=== PATIENT | female | born 1985 | race Caucasian/White ===

== ENCOUNTER 2020-03-16 14:44 | Emergency (ER) | payer BC, SELFPAY ==
[2020-03-16 15:50] VITALS: BP 126/93; PULSE 66; RESP 20; TEMP 36.8; O2SAT 100; BMI 26.7
[2020-03-16 16:20] VITALS: BP 126/93; PULSE 66; RESP 20; TEMP 36.8; O2SAT 100
--- NOTE | 2020-03-16 16:21 | HMH.EDUTC ---
[facility] [place] Impression: Exposure to COVID-19 virus Disposition: Home, Self-Care Condition on Discharge: Good Instructions: DI for COVID-19 (Suspected or Confirmed ), Preventing the Spread of Coronavirus Discharge Instructions Additional Instructions: self isolate until test results are known to be neg Referrals: Vega Dia [Primary Care Provider] - Time of Disposition: 16:26 Medical Decision Making - Travis Inquiry Pt receiving controlled substance: No Vital Signs: 03/16/20 15:50 03/16/20 16:20 Temperature 98.2 F 98.2 F Temperature Source Oral Pulse Rate 66 Pulse Rate [Left Brachial] 66 Respiratory Rate 20 20 Blood Pressure 126/93 H Blood Pressure [Left Arm] 126/93 H Blood Pressure Mean [Left Arm] 104 Blood Pressure Source [Left Arm] Automatic Cuff Blood Pressure Position [Left Arm] Sitting 02 Sat by Pulse Oximetry 100 Oxygen Delivery Method Room Air [facility] [place] - General Chief complaint: Urgent Treatment Center Stated complaint: covid exposure Time Seen by Provider: 03/16/20 16:21 Mode of Arrival: Ambulatory Source of Information: Patient Limitations: No Limitations Description of Symptoms (Recalled from Triage Doc. by RN): COVID TEST D/T EXPOSURE HEENT Symptoms (Recalled from RN notes): No Resp Symptoms (Recalled from RN notes): No Skin Symptoms (Recalled from RN notes): No MS Symptoms (Recalled from RN notes): No Functional Status (Recalled from RN notes): WNL - History of Present Illness Provider Complaint: 34 yr old female presents for covid test. pt states she was exposed but no symptoms. - Worker's Comp Is this a Worker's Comp case?: No [facility] History - Hepatitis A Screen Drug use history?: No High risk sexual behaviors?: No History of sexually transmitted infection?: No Currently employed?: No Childcare worker?: No Do you have indoor plumbing?: Yes Do you have electricity?: Yes Attestation statement:: This patient has been screened for Hepatitis A risk factors. I have reviewed the patient's past medical history: Yes - Social History Alcohol Intake: never Occupational Status: other ROS Obtained: Yes All systems reviewed & no additional complaints, Yes Systems reviewed as appropriate & no additional complaints - Constitutional Constitutional: Reports system reviewed and no additional complaints, except as docu, Denies chills - Eyes Eyes: Reports system reviewed and no additional complaints, except as docu, Denies change in vision - ENT Ears, Nose, Mouth, and Throat: Reports system reviewed and no additional complaints, except as docu, Denies sore throat - Cardiovascular Cardiovascular: Reports system reviewed and no additional complaints, except as docu, Denies chest pain at rest - Respiratory Respiratory: Yes system reviewed and no additional complaints, except as docu, No change in phlegm color - Gastrointestinal Gastrointestingal: Reports: system reviewed and no additional complaints, except as docu. Denies: bloating - Genitourinary Female Genitourinary: Reports system reviewed and no additional complaints, except as docu - Musculoskeletal Musculoskeletal: Reports system reviewed and no additional complaints, except as docu, Denies joint swelling - Integumentary/Breasts Skin/Breast: Reports system reviewed and no additional complaints, except as docu, Denies rash - Neurologic Neurologic: Reports system reviewed and no additional complaints, except as docu, Denies loss of vision - Endocrine Endocrine: Reports system reviewed and no additional complaints, except as docu, Denies fatigue - Hematologic/Lymphatic Henatologic/Lymphatic: Reports system reviewed and no additional complaints, except as docu, Denies lymphadenopathy - Allergic/Immunologic Allergic/Immunologic: Reports system reviewed and no additional complaints, except as docu, Denies itchy eyes Physical Exam - General General appearance: alert, in no apparent distress
--- NOTE | 2020-03-16 20:53 | PC.NURSE ---
PATIENT NOTIFIED OF POSITIVE COVID RESULTS
== END 2020-03-16 16:30 | disposition home or self-care (01) ==
PROVIDERS: Emergency Provider Nurse Practitioner Family; PCP Family Medicine
DX: U07.1 COVID-19 (principal)
CPT/HCPCS: 99202; G0463; U0003

== ENCOUNTER 2024-12-26 08:16 | Outpatient (CLI) | payer BC, SELFPAY ==
--- OUTSIDE RECORDS SUMMARY | 2024-12-26 08:18 | XMS_ITS | Clinical Summary ---
Author Organization Healthcare Address [address] [place] [address] Care Team Providers Care Theatre Instructor Name Role Phone Vega Dia MD Primary Care Provider [phone] Allergies No known active allergies Medications cholecalciferol (Vitamin D-3) 125 MCG (5000 UT) capsule Take 5,000 Units by mouth 1 (one) time each day. Active Cetirizine HCl (ZYRTEC PO) Take by mouth. Active loratadine (Claritin) 10 MG tabletIndication s:Seasonal allergies Take 1 tablet (10 mg) by mouth 1 (one) time each day. 90 tablet 3 02/08/2024 Active Immunizations Immunization Administration Dates Next Due HPV 9-Valent 06/08/2023,02/02/2023,05/05/2022 Influenza, injectable, quadr ivalent, preservative free 02/02/2023 Influenza, seasonal, injectable 01/31/2020,01/25,01/23/2018 Family History Medical History Relation Name Comments Thyroid disease Brother Conversions - Other Father Juvenile ALS Heart attack Maternal Grandfather Heart attack Maternal Grandmother Coronary artery disease Mother Kenya natarajan Diabetes Mother Kenya natarajan Heart Problem Mother Kenya natarajan Thyroid disease Mother Kenya natarajan Other cancer Other Cervical cancer Paternal Grandmother Hypertension Sister Relation Name Status Comments Brother Father Maternal Grandfather Maternal Grandmother Mother Kenya natarajan Other Paternal Grandmother Sister Social History Tobacco Use Types Packs/Day Years Used Date Smoking Tobacco: Never Smokeless Tobacco: Never Tobacco Cessation:Counseling Given: Not Answered Alcohol Use Standard Drinks/Week Comments Yes 1 (1 standard drink = 0.6 oz pur e alcohol) Occassionally/socially Comments No Sex and Gender Information Value Date Recorded Sex Assigned at Not on file Legal Sex Female 7:32 PM EDT Gender Identity Not on file Sexual Orientation Not on file Last Filed Vital Signs Vital Sign Reading Time Taken Comments Blood Pressure 128/84 04/06/2024 8:25 AM EST Pulse 69 04/06/2024 8:25 AM EST Temperature 37.1 C (98.7 F) 04/06/2024 8:25 AM EST Respiratory Rate 12 04/06/2024 8:25 AM EST Oxygen Saturation 100% 04/06/2024 8:25 AM EST Inhaled Oxygen Concentration - - Weight 84 kg (185 lb 3 oz) 04/06/2024 8:25 AM ES T Height 170.2 cm (5' 7 ) 02/02/2023 8:20 AM EST Body Mass Index 29 02/02/2023 8:20 AM EST Plan of Treatment Upcoming Encounters Date Type Department Care Team (Late st Contact Info) Description 03/12/2025 9:00 AM EST Office Visit [facility] [address], [address] [place] [address] Pearl Ratliff, MANAGER ICU, CNM [address] [place] [address] Health Maintenance Due Date Last Done Comments [facility]-Depression Screening 1984 [facility]-Infant/Child/Adol SDOH Screenings 1984 [facility]-Varicella Vaccines (1 of 2 - 13+ 2-dose series) 1997 [facility]- SDOH Screenings 2002 [facility]-Adult SDOH Screenings 2002 [facility]-DTaP,Tdap,and Td Vaccines (1 - Tdap) 2003 [facility]-Hepatitis B Vaccines (1 of 3 - 19+ 3-dose series) 2003 [facility]-TVUEI-66 Vaccine (2 - 2024- season) 2024 01/28/2021 [facility]-Influenza Vaccine (#1) 11/12/202402/02, 12/23/2021, 01/01/2021, Additional history exists [facility]-Pap Smear 02/07/2027 02/08/2024, 01/13, 02/03/2022, Additional history exists [facility]-Cervical Cancer Screening 02/07/2029 [facility]-HPV/Cotest 02/07/2029 02/08/2024, 01/13, 02/03/2022, Additional history exists [facility]-Zoster Vaccines (1 of 2) 2034 [facility]-HIV Screening Completed 02/03/2022, 02/03/2021 [facility]-Hepatitis C Screening Completed 02/03/2022, HPV Vaccines Completed 06/08/2023, 01/13, 05/05/2022 [facility]-Obesity Intervention Completed 025, 02/08/2024, 06/08/2023, Additional history exists [facility]-HIB Vaccines Aged Out No longer e ligible based on patient's age to complete this topic [facility]-Hepatitis A Vaccines Aged Out No longer eligible based on patient's age to complete this topic [facility]-IPV Vaccines Aged Out No longer e ligible based on patient's age to complete this topic [facility]-Pneumococcal Vaccine: Pediatrics (0 to 5 Years) and At-Risk Patients (6 to 49 Years) Aged Out No longer eligible based on patient's age to complete this topic [facility]-Rotavirus Vaccines Aged Out No lo nger eligible based on patient's age to complete this topic Procedures Procedure Name Priority Date/Time Associated Diagnosis Comments REFERRED THINPREP PAP AND HPV (SO) Routine 02/08/2024 10:07 AM EST Annual physical exam HEPATITIS C ANTIBODY W/REFLEX TO HCV QUANT PCR Routine 02/03/2022 8:39 AM EST Screen for STD (sexually transmitted disease) HIV 1/2 ANTIBODY/ANTIGEN SCREEN WITH REFLEX TO HIV I/II DIFFERENTIATION Routine 02/03/2022 8:39 AM EST Screen for STD (sexually transmitted disease) from Last 3 Months or Most Recently Relevant to Health Maintenance Results * (ABNORMAL) Referred ThinPrep Pap and HPV (SO) (02/08/2024 10:07 AM EST) Pap, Source Cx/Vagina 02/16/2024 11:50 AM EST [facility] EER Referred ThinPrep Pap and HPV See Note 02/16/2024 11:50 AM EST [facility] ([facility]) PAP, THINPREP Abnormal(A ) 02/16/2024 11:50 AM EST [facility] ([facility]) High Risk HPV Abnormal(A ) 02/16/2024 11:50 AM EST [facility] ([facility]) HPV Genotype Abnormal(A ) 02/16/2024 11:50 AM EST [facility] ([facility]) Swab Cervix uteri structure / Unknown Non-blood Collection / Unknown 02/08/2024 10:07 AM EST 02/08/2024 6:15 PM EST Narrative [facility] ([facility]) - 02/16/2024 11:50 AM EST Authorized individuals can access the [facility] Enhanced Report using the following link: [email or web address] Performed By: [facility] [address] [place] [id number] [place] Rider: David Basurto MD, PhD CLIA Number: [id number] SPECIMEN PART A. Cervical, Endocervical, Vaginal, ThinPrep Pap (Compliance Quality Performance Analyst) CYTOLOGY HX Date of Last Menstrual Period: N FINAL DIAGNOSIS GENERAL CATEGORY: Abnormal INTERPRETATION: Atypical Squamous Cells Of Undetermined Significance (ASC-US). SPECIMEN ADEQUACY:Satisfactory for evaluation. Endocervical/transformation zone component present. Electronically Signed Out : Wilmer Murray MD Performed by: Aisha Nevarez [address] [place] [address] [place] [address] Shreya Rodriguez MD, HR-HPV: Positive Test performed by the FDA-approved Hologic (Gen-Probe) APTIMA HPV test, which detects HPV genotypes: 16, 18, 31, 33, 35, 39, 45, 51, 52, 56, 58, 59, 66, and 68. This assay has been cleared for the specimen types listed below. Other specimen types have not been validated for this assay. Clinician-collected ThinPrep Pap specimens. Performed by: Aisha Nevarez [address] [place] [address] [place] [address] Shreya Rodriguez MD, HPV TYPE 16: Positive HPV TYPE 18/45: Negative Testing performed by the FDA-approved APTIMA HPV 16 18/45 Genotype Assay. This assay has been cleared for the specimen types listed below. Other specimen types have not been validated for this assay. Clinician-collected ThinPrep Pap specimens. [facility]formed by: [facility] [address] [place] [address] [place] [address] Shreya Rodriguez MD, Pearl Ratliff APRN, CNM LAB REF LAB BLOOD AND FLUID ORD Final Result [facility] ([address] [address] * HIV 1 & 2 Antibody/Antigen Screen (02/03/2022 8:39 AM EST) Pathologist [facility] HIV 1 & 2 Antibody/Anti gen Screen Nonreactive Nonreactive 02/03/2022 2:39 PM EST [facility] Blood Venous blood specimen / Unknown Venipuncture / Unknown 02/03/2022 8:39 AM EST 02/03/2022 1:16 PM EST Kathryn Unger APRN, CNM LAB BLOOD ORDERABLES Final Result [facility] [address] [place] [address] * Hepatitis C Antibody (02/03/2022 8:39 AM EST) Hepatitis C Antibody Negative Negative 02/03/2022 2:37 PM EST [facility] Blood Venous blood specimen / Unknown Venipuncture / Unknown 02/03/2022 8:39 AM EST 02/03/2022 1:16 PM EST Kathryn Unger MANAGER ICU, CNM LAB BLOOD ORDERABLES Final Result [facility] [address] [place] [address] from Last 3 Months or Most Recently Relevant to Health Maintenance Insurance [employer] Care Teams Theatre Instructor Relationship Specialty Start Date End Date Vega Dia MD [address] [place] [address] PCP - General 07/25/20
--- OUTSIDE RECORDS SUMMARY | 2024-12-26 08:18 | XMS_ITS | Patient Health Record ---
Author Organization [facility] Address [address] [place] [address] Care Team Providers Care Replenishment Buyer Name Role Phone Unknown, PCP Primary Care Provider Unavailabl e Allergies No Known Allergies Reason For Referral No Information Medications Medication SIG (Take, Route, Frequency, Duration) Notes Start Date End Date Status Vitamin D 50 MCG (1999) 1 tablet Orally Once a day Active Cetirizine HCl 10 MG 1 tablet Orally Once a day Active Immunizations Vaccine Route Administration Date Status Comme [facility] [id number] FluBLOK Quad PFS (0.5m L Admin) 18 y/o & older Unknown 07/17/2022 Refused Social History Tobacco Use: Social History Observation Description Date Details (start date - stop date) Never Smoker NA - NA Alcohol Misuse/Abuse (Audit C): Question Answer Notes Did you have a drink containing alcohol in the p ast year? No Points: 0 Interpretation: Negative Tobacco Use Question Answer Notes Are you a Never smoker Are you a Never smoker Problems Problem Type SNOMED Code ICD Code Onset Dates Problem Status W/U Status Risk Notes Problem Seasonal allergy (302761678) Seasonal allergies (J30.2) Active confirmed Problem Vitamin D deficiency (52321555) Vitamin D deficiency (E55.9) Active confirmed Plan Of Treatment No Information Insurance Providers Payer Name Payer Address Payer Phone Subscriber Number Group Number Insured Name Patient Relationship to Insured Coverage Start Date Coverage End Date [facility] [address] [place] [address] [phone] [id number] Princess Natarajan Self - patient is the insured Medical (General) History Medical History History ICD Code Seasonal allergies J30.2 Vitamin D deficiency E55.9 Surgical History Surgery Date(Month/Year) tonsillectomy 2001 left knee cap surgery 1996 tubal ligation wisdom teeth extraction 2001 Hospitalization History Reason Date(Month/Year) NCB X2
[2024-12-26 08:36] LABS: Clostridium Difficile A/B, PCR Not Detected (NotDetected); Cyclospora Cayetanesis Not Detected (NotDetected); Salmonella, PCR Not Detected (NotDetected); Shiga-like toxin E coli Not Detected (NotDetected); Shigella Enterovasive E coli Not Detected (NotDetected); Vibrio, PCR Not Detected (NotDetected); Yersinia Entercolitica, PCR Not Detected (NotDetected)
== END 2024-12-26 23:59 | disposition home or self-care (01) ==
PROVIDERS: PCP Family Medicine; Visit Provider Nurse Practitioner Family
DX: R19.7 Diarrhea, unspecified (principal)
CPT/HCPCS: 82653; 87506

== ENCOUNTER 2025-01-17 11:00 | Day surgery (SDC) | payer BC, SELFPAY ==
[2025-01-15 12:09] VITALS: BMI 28.1
--- NOTE | 2025-01-16 16:29 | EXP.HP ---
History of Present Illness *Admission Date: 01/17/25 *History of present illness: Mrs. Natarajan is a 39-year-old female who is here for diagnostic colonoscopy. She has had a change in her bowel habits since August 2024. She developed fecal urgency and diarrhea with crampy abdominal discomfort and lower abdominal pain. She has noted mucus with her bowel movements but no blood. She did try probiotics that helped for a couple of days but then her symptoms recurred. She has had some increased gassiness but no bloating. The patient has never had a colonoscopy. She does have a third cousin with colon cancer in his 40s. The examination is deemed medically necessary for diagnostic colonoscopy. The patient has been seen, interviewed and examined prior to the procedure by both myself and the anesthesia provider. [facility] Disclaimer: The information contained in this section may have been updated after the patient was seen, as this information can be updated by other users. Surgical History History of tubal ligation History of knee surgery History of tonsillectomy Family History Mother Diabetes Heart problem Father Amyotrophic lateral sclerosis (ALS) Grandmother Cancer Grandfather Multiple myeloma Social History (Updated 01/17/25 @ 11:58 by Mark Malcolm CRNA) Smoking Status: Never smoker alcohol intake: never substance use type: denies use current occupational status: employed Travel in the last 8 weeks?: None Have you lived/traveled outside US in past 30 days?: No Contact w/someone who lives/traveled outside US past 30 days?: No Exposure to someone with infectious disease in past 14 days?: No Do you have a fever (greater than 100.4 F or 38 C)?: No Have you tested positive for COVID-19?: No Exposed to someone with COVID-19 in past 14 days?: No Do you have a sore throat?: No Do you have a cough?: No Do you have any weakness?: No Are you experiencing any nausea/vomitting?: No Do you have any diarrhea?: No Are you experiencing any unusual bleeding?: No Do you have any muscle aches/pain?: No Do you have any abdominal pain?: No Are you experiencing loss of taste or smell?: No Review of Systems Review of Systems Review of systems (narrative): Negative *Cardiovascular Comments: Negative *Gastrointestinal Comments: Negative *Genitourinary Comments: Negative *Musculoskeletal Comments: Negative *Neurologic Comments: Negative Meds Home Medications and Allergies Home Medications ?Medication ?Instructions ?Recorded ?Confirmed ?Type loratadine 10 mg capsule (Allergy 10 mg PO DAILY 12/24/24 01/17/25 History Relief (loratadine)) multivitamin 1 tab PO DAILY 12/24/24 01/17/25 History sodium,potassium,mag sulfates 17.5 See Rx Instructions PO .COMPLEX 01/04/25 01/15/25 Rx gram-3.13 gram-1.6 gram oral soln #354 mL (Suprep Bowel Prep Kit) New Prescriptions to Start Prescriptions: Allergies Allergy/AdvReac Type Severity Reaction Status Date / Time No Known Allergies Allergy Verified 01/17/25 11:19 Exam Data for Last 24 hours I & O for Last 24 hours: Intake & Output 01/13/25 01/14/25 01/15/25 01/16/25 22:59 23:59 23:59 23:59 Weight 180 lb *Routine HEENT Exam Head: Present normocephalic Eye: Present EOMI and PERRL ENT: Present mucous membranes moist *Routine Neck Exam Neck: Present supple *Routine Respiratory Exam Respiratory: Present CTA bilaterally *Routine Cardiovascular Exam Cardiovascular: Present RRR *Routine Abdominal Exam Abdominal: Present soft and normoactive bowel sounds; Absent tenderness *Routine Rectal Exam Rectal:: deferred *Routine Genitalia Exam Genitalia:: deferred *Routine Extremities Exam Extremities: Absent cyanosis, clubbing or edema *Routine Skin Exam Skin: Present warm; Absent rash *Routine Neurological Exam Neurological: Present alert and oriented X3 Assessment and Plan *Assessment and plan (1) Change in bowel habits: Status: Acute Category: Medical Code(s): R19.4 - Change in bowel habit (2) Fecal urgency: Status: Acute Category: Medical Code(s): R15.2 - Fecal urgency (3) Diarrhea: Status: Acute Category: Medical Code(s): R19.7 - Diarrhea, unspecified (4) Abdominal cramping: Status: Acute Category: Medical Code(s): R10.9 - Unspecified abdominal pain (5) Flatulence: Status: Acute Category: Medical Code(s): R14.3 - Flatulence (6) Mucus in stool: Status: Acute Category: Medical Code(s): R19.5 - Other fecal abnormalities Plan A/P: 1. Change in bowel habits with fecal urgency, diarrhea, abdominal cramps and gassiness is the preprocedural diagnosis. The patient also notes mucus with her stool. The patient will be anesthetized/sedated using MAC sedation. The patient has been seen and examined. Cardiac and lung assessment prior to the examination is stable. Proceed with planned diagnostic colonoscopy.
--- NOTE | 2025-01-17 06:47 | HMH.PROCNOTE ---
[facility] Procedure Note Date: 01/17/25 Time: 13:07 Procedure Note:: Colonoscopy Procedure Report: Colonoscopy with cold snare polypectomy and cold biopsies Endoscopist: Zan Cronin II, MD Referring physician: Vega Dia MD Date of Procedure: January 17, 2025 Equipment: Olympus [id number] adult colonoscope Sedation: MAC sedation Indication: Mrs. Natarajan is a 39-year-old female who is here for diagnostic colonoscopy. She has had a change in her bowel habits since August 2024. She developed fecal urgency and diarrhea with crampy abdominal discomfort and lower abdominal pain. She has noted mucus with her bowel movements but no blood. She did try probiotics that helped for a couple of days but then her symptoms recurred. She has had some increased gassiness but no bloating. The patient has never had a colonoscopy. She does have a third cousin with colon cancer in his 40s. She reports no rectal bleeding or weight loss. She reports no family history of colitis or Crohn's disease. The examination is deemed medically necessary for diagnostic colonoscopy. Procedure: Prior to the procedure, a history and physical exam was performed, and patient's medications and allergies were reviewed. The risks, benefits and alternatives of the sedation and procedure were discussed with the patient. All questions were answered and informed consent was obtained. The patient was brought to the procedure room. Patient identification and proposed procedure were verified by the physician and the nurse. The patient was placed in a left lateral decubitus position and the scope was passed under direct vision. Throughout the procedure, the patient's blood pressure, pulse, and oxygen saturations were monitored continuously. The colonoscopy was accomplished without difficulty. The patient tolerated the procedure well. Findings: On digital rectal examination there was normal rectal tone. There were no external hemorrhoids. The colonoscope was introduced through the anal canal to the rectum and advanced to the cecum. The ileocecal valve and appendiceal orifice were identified. The scope was advanced a short distance into the ileum which appeared grossly normal. The scope was then withdrawn into the colon. The cecum, ascending, transverse, descending and sigmoid colon were grossly normal. Random cold biopsies were taken from both the right and the left colon separately to rule out microscopic colitis. There was normal vascular pattern throughout. Within the rectum there was a 4 mm polyp that was removed via cold snare polypectomy. Upon retroflexion within the rectum there were grade 1 internal hemorrhoids. The preparation was excellent throughout with Warren Preparation Score of 9. The cecal time was 12 minutes. Impression: 1. Diminutive 4 mm rectal polyp 2. Otherwise normal colonoscopy with intubation of the terminal ileum Plan: I will follow-up the random biopsies to rule out microscopic colitis. If the patient has microscopic colitis, I would recommend budesonide. If the biopsies are normal, I would recommend Viberzi. I will follow-up the polyp histology and if the polyp is adenomatous, I would recommend repeat screening/surveillance colonoscopy again in 5 years.
[2025-01-17 11:20] VITALS: BP 128/90; RESP 18; TEMP 36.6; O2SAT 100
[2025-01-17 11:24] LABS: Urine Pregnancy, HCG Qual. Negative (Negative)
[2025-01-17] MEDS: LACTATED RINGERS 1000ML 1,000 ML 50 ML IV (11:27)
--- NOTE | 2025-01-17 11:57 | P.PNANES_ITS ---
[facility] Disclaimer: The information contained in this section may have been updated after the patient was seen, as this information can be updated by other users. Surgical History History of tubal ligation History of knee surgery History of tonsillectomy Family History Mother Diabetes Heart problem Father Amyotrophic lateral sclerosis (ALS) Grandmother Cancer Grandfather Multiple myeloma Social History Smoking Status: Never smoker alcohol intake: never substance use type: denies use current occupational status: employed Travel in the last 8 weeks?: None [facility] Anesthesia Checklist Patient Identification Patient Identification: Arm Band and Verbal (Name & ) Structural Data Admitted From: Home Planned Operative Procedure/s: Colonoscopy Consent for Planned Operative Procedure(s) Verified: Yes Verified Documents: Surgical Consent NPO Status Verified Time NPO: 00:00 Chart Verification Results Verified: None Additional verifications Patient : No Anesthesia Reactions: No Airway Assessment Mallampati Score:: Class II C-Spine Mobility Assessed: Yes TMJ Mobility Assessed: Yes Dentition: Good Dentition Neurological Assessment Level of Consciousness: Awake, Alert and Appropriate Hx Seizures: No Anesthesia Plan Anesthesia Risk discussed: Yes Anesthesia Plan: Verified ASA Class: I Anesthesia Type: MAC
[2025-01-17 13:09] VITALS: BP 99/70; PULSE 65; RESP 16; TEMP 36.2; O2SAT 98
[2025-01-17 13:19] VITALS: BP 98/74; PULSE 65; RESP 18; O2SAT 99
[2025-01-17 13:29] VITALS: BP 107/64; PULSE 64; RESP 18; O2SAT 100
[2025-01-17 13:31] VITALS: BP 117/81; PULSE 61; RESP 18; O2SAT 100
== END 2025-01-17 13:33 | disposition home or self-care (01) ==
PROVIDERS: PCP Family Medicine; Visit Provider Internal Medicine Gastroenterology
PROC: 0DJD8ZZ Inspection of Lower Intestinal Tract, Via Natural or Artificial Opening Endoscopic (ICD-10-PCS; CPT 45378; principal; 2025-01-17 12:30)
DX: D12.8 Benign neoplasm of rectum (principal); K64.0 First degree hemorrhoids; Z80.0 Family history of malignant neoplasm of digestive organs
CPT/HCPCS: 45385; 81025; J2003; J2704; J7120